=== PATIENT | male | born 1980 | race Two or more races ===

== ENCOUNTER 2020-12-31 01:08 | Emergency (ER) | payer SELFPAY ==
[~2020-12-31] VITALS: Ht 182.9 cm; Wt 80.3 kg
--- NOTE | 2020-12-31 01:12 | Emergency Room Report ---
History of Present Illness General Chief Complaint: altered mental status Source: Patient, EMS Present Illness HPI Patient is a 40-year-old male brought in by EMS after increased altered mental status. Reports having no prior medical history. Denies any current complaints. Was found sitting on a scooter. Patient had no known recent trauma. Patient had apparently parked this. Patient denies any current nausea or vomiting. Denies any recent hematemesis. Allergies: Coded Allergies: No Known Allergies (Unverified , 12/31/20) Patient History Past Medical History: see triage record, other Reviewed Nursing Documentation: PMH: Agreed; PSxH: Agreed Review of Systems All Other Systems: negative except mentioned in HPI Physical Exam General Appearance: well appearing, no apparent distress, alert Head: normocephalic, atraumatic ENT: hearing grossly normal, normal voice Neck: full range of motion, supple Respiratory: no respiratory distress, speaking full sentences Cardiovascular #1: normal inspection Gastrointestinal: normal inspection, non tender, soft Musculoskeletal: no calf tenderness, other - bilateral upper extremity congenital deformity Neurologic: alert, motor strength/tone normal, sales hunter III-XII nml as tested, or iented x3, normal gait Psychiatric: normal inspection, mood/affect normal Skin: no rash Medical Decision Making Diagnostic Impression: Primary Impression: Acute alcoholic intoxication ER Course Patient presents for altered mental status. Differential diagnosis include was not limited to hypoglycemia, alcohol tox occasion, substance abuse among others. Patient has a benign exam and does not appear to require any imaging or laboratory testing at this time. Patient's blood sugar by EMS was 101. Patient does not appear to be in any acute distress.Patient does report taking large amount of alcohol. Does not appear to have any evidence of acute medical condition at this time. Patient will be observed in the emergency department. Patient was noted to have gradual improvement in his mental status. No signs of head trauma. At the time of discharge patient was able to ambulate without a ssistance. Able to ambulate without assistance. This medical record is generated with [employer] aircraft machinist helper software. There may be some aircraft machinist helper discrepancies related to use of this software Status: improved Disposition: HOME, SELF-CARE Condition: Stable Donald Graham MD Dec 31, 2020 01:12
[2020-12-31 01:26] VITALS: BP 160/90
[2020-12-31 03:49] VITALS: BP 136/80
--- NOTE | 2020-12-31 03:52 | NUR ---
ER DISCHARGE NOTE: Patient is cleared to be discharged per ERMD, pt is aox4, on room air, with stable vital signs. pt was given dc instructions, pt was able to verbalize understanding, pt id band and iv site removed without complications. pt is able to ambulate with steady gait. pt took all belongings.
== END 2020-12-31 03:52 | disposition home or self-care (01) ==
LOC: EDBD 01:08 → EMR 01:25
DX: F10.129 Alcohol abuse with intoxication, unspecified (principal)
CPT/HCPCS: 99283